=== PATIENT | female | born 1970 | race Two or more races ===

== ENCOUNTER 2022-09-14 14:34 | Emergency (ER) | payer OTHER ==
[~2022-09-14] VITALS: Ht 149.9 cm; Wt 68.9 kg
[2022-09-14 15:41] VITALS: BP 118/83
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
[2022-09-14] MEDS ORDERED: KETOROLAC TROMETHAMINE INJ 60 MG/2 ML VIAL IM ONE (16:00)
[2022-09-14] MEDS ORDERED: CYCLOBENZAPRINE 10 MG TABLET PO ONE (16:00)
[2022-09-14] MEDS ORDERED: LIDOCAINE 5% (PATCH) 1 EA PATCH TP SCH (16:00)
[2022-09-14] MEDS ORDERED: KETOROLAC TROMETHAMINE INJ 30 MG/ML VIAL ONE (16:16)
[2022-09-14] MEDS ORDERED: CYCLOBENZAPRINE 10 MG TABLET ONE (16:16)
--- NOTE | 2022-09-14 16:25 | NUR ---
medicated as ordered
[2022-09-14] MEDS ORDERED: LIDO30AD10 TP (16:46)
--- NOTE | 2022-09-14 17:18 | NUR ---
Patient discharged to home in stable condition. Written and verbal after care instructions given. Patient verbalizes understanding of instruction.
== END 2022-09-14 17:19 | disposition home or self-care (01) ==
LOC: ER 14:37
DX: M54.6 Pain in thoracic spine (principal); I10 Essential (primary) hypertension; Z88.0 Allergy status to penicillin; V89.2XXA Person injured in unspecified motor-vehicle accident, traffic, initial encounter; Y92.410 Unspecified street and highway as the place of occurrence of the external cause; Y93.89 Activity, other specified; Y99.8 Other external cause status
CPT/HCPCS: 99283; 96372; J1885